=== PATIENT | female | born 1985 | race African-American/Black ===

== ENCOUNTER 2024-08-30 09:28 | Emergency (ER) | payer OTHER, SELFPAY ==
[2024-08-30 09:36] VITALS: BP 110/77; PULSE 78; RESP 18; O2SAT 99; BMI 27.4
--- NOTE | 2024-08-30 10:18 | ED_ITS ---
HPI - Neck Pain/Injury General Chief Complaint: Neck Pain/Injury Stated Complaint: Pain in neck Time Seen by Provider: 08/30/24 10:16 Source: patient, RN notes reviewed and patient case manager Limitations: language barrier History of Present Illness ED Provider: Kristy Quiroga PA-C HPI Narrative: This is a 39-year-old [place] Creole speaking female, with no reported known medical problems who presents emergency department with concerns of neck pain for the last 2 weeks. Patient denies any recent trauma, injury, heavy lifting or falls. States that the pain worsens with movement of her neck. Denies taking any pain modality treatments for her symptoms. Denies any fevers or chills. No chest pain or shortness for breath. No recent change to her sleeping arrangements or pillows. No chance of . No other complaints or concerns at this time. MD complaint: neck pain Associated symptoms: none Treatments prior to arrival: none Related Data Previous Rx's ?Medication ?Instructions ?Recorded acetaminophen 500 mg tablet 500 - 1,000 mg (1 - 2 x 50 0 mg) PO 08/30/24 (Tylenol Extra Strength) Q6H PRN pain #30 tabs ibuprofen 600 mg tablet 600 mg PO Q6H PRN pain #30 t abs 08/30/24 Allergies Allergy/AdvReac Type Severity Reaction Status Date / Time No Known Allergies Allergy Verified 08/30/24 09:38 Review of Systems Review of Systems: Yes all other systems are reviewed and are negative Constitutional: Constitutional: Reports as per [facility] Social History Social History Smoked in Last 30 Days: No Use of substances other than those prescribed or required for medical reasons: No Advance Directives: No Advance Directives Information Provided: Yes Physical Exam Vital Signs: Vital Signs: Last Vital Signs Pulse 78 08/30/24 09:36 Resp 18 08/30/24 09:36 BP 110/77 08/30/24 09:36 Pulse Ox 99 08/30/24 09:36 O2 Del Method Room Air 08/30/24 09:36 BMI result Body Mass Index 27.4 Const: General: cooperative, comfortable and no acute distress Orientation/consciousness: patient oriented x3 Limitations: no limitations HEENT: Head: Yes normal to inspection, Yes normocephalic and Yes atraumatic Ears: hearing grossly normal bilaterally General nose exam: Normal external nose present Face and sinus: Yes normal facial exam Mouth: Normal oral and palatal mucosa present, oropharynx normal and moist mucous membranes Throat: Yes posterior oropharynx normal Eyes: General: appearance normal, both eyes and all related structures Eyelids: Yes eyelids normal Conjunctivae: conjunctivae normal Sclerae: sclerae normal Pupils: Equal, round and reactive pupils present EOM: EOMs intact bilaterally Neck: Other: No nuchal rigidity, full ROM of the neck. She does have pain with lateral rotation looking over to her right side. Able to touch chin to chest. She does have tenderness palpation along the right cervical paraspinous muscles extending into her right upper trapezius muscle. Neck: Yes normal visual inspection, Yes full ROM and Yes no lymphadenopathy Lymphatic: no lymphadenopathy noted Chest: Chest palpation & inspection: normal inspection of the chest Resp: Effort & Inspection: normal respiratory effort and able to speak in complete sentences Auscultation: clear to auscultation bilaterally, no crackles, no rales, no rhonchi and no wheezes Cardio: Rate: regular rate Rhythm: regular rhythm Heart sounds: S1 normal heart sound present and S2 normal heart sound present GI: Inspection: Yes normal to inspection Skin: General skin exam: no rashes or lesions noted Trauma: no lacerations or abrasions Wounds: no wounds Neuro: General: patient oriented x3 and moves all extremities Cranial nerves: Yes Equal, round and reactive pupils present Extrem: General: Yes normal to inspection Right upper extremity: normal to inspection Left upper extremity: normal to inspection Right lower extremity: normal to inspection Left lower extremity: normal to inspection Medical Decision Making Medical Decision Making MDM Narrative: This is a 39-year-old female who presents emergency department for evaluation of neck pain for the last 2 weeks. No trauma or injury. On arrival, vital signs within normal limits. She is speaking full sentences under no acute distress. She has full ROM of the neck. She has no midline cervical spine tenderness. Differential diagnoses include spasmodic torticollis, cervical strain, sprain, contusion. Given no injury, and she has tenderness palpation along the cervical paraspinous muscles extending into the right trapezius muscle, will treat this as musculoskeletal in nature. Given strict return precautions. We will send over ibuprofen and Tylenol to her pharmacy. Patient stable for discharge. Differential Diagnosis Differential Diagnoses: The differential diagnosis associated with the presentation includes See above Discharge Plan Discharge Clinical Impression: Cervical strain Patient Disposition: Home, Self-Care Instructions: Muscle Strain (ED) Additional Instructions: You were seen in the emergency department due to neck pain. You are tender along your muscles along your neck which is very common. Please rest, use heat, and alternate between ibuprofen and Tylenol as needed. Gentle stretching and massage can also help. If any new or worsening symptoms occur including but not limited to worsening pain, high fevers, inability to move your neck, please return for re-evaluation. Prescriptions: New ibuprofen 600 mg tablet 600 mg PO Q6H PRN (Reason: pain) Qty: 30 0RF acetaminophen [Tylenol Extra Strength] 500 mg tablet 500 - 1,000 mg PO Q6H PRN (Reason: pain) Qty: 30 0RF Print Language: Cuban Crebarrera
[2024-08-30 10:42] VITALS: BP 104/68; PULSE 80; RESP 14; TEMP -17.7; TEMP 0; O2SAT 99
--- OUTSIDE RECORDS SUMMARY | 2024-08-30 11:04 | XMS_ITS | Clinical Summary ---
Author Organization [facility] Address [address] [place] [address] Phone Care Team Providers Care Courseware Developer Name Role Phone Unknown, Unknown Primary Care Provider Stan catsillo Allergies No known active allergies Social History Tobacco Use Types Packs/Day Years Used Date Smoking Tobacco: Never Assessed Child or Family Care Answer Date Record ed Do you have problems with on e of the following making it difficult for you to work, study, or receive health care? I choose not to answer 06/02/2023 Education Answer Date Recorded Are you interested in help w ith more adult education (for example, completing high school, GED, job training, learning the [place] language, technical skills, or developing parenting skills)? I choose not to answer 06/02/2023 Are you concerned about learning? Not on file 06/02/2023 No 06/02/2023 Yes 06/02/2023 Food Answer Date Recorded Within the past 6 months we worried whether our food would run out before we got money to buy more. I choose not to answer 06/02/2023 Within the past 6 months the food we bought just didn't last and we didn't have enough money to get more. I choose not to answer 06/02/2023 Residential Stability Answer Date Recor ded What is your housing situation today? I choose n ot to answer 06/02/2023 How many times have you move d in the past 12 months? I choose not to answer 06/02/2023 Paying for Meds Answer Date Recorded Do you have trouble paying for medicines? I gina se not to answer 06/02/2023 Paying Utility Bills Answer Date Record ed Do you have trouble paying y our heating or electricity bill? I choose not to answer 06/02/2023 Transportation Answer Date Recorded Has the lack of transportati on kept you from medical appointments or from getting medications? I choose not to answer 06/02/2023 Unemployment Answer Date Recorded Are you currently unemployed or working on a part-time or temporary basis, and looking for work? I choose not to answer 06/02/2023 Digital Access Answer Date Recorded No 06/02/2023 No 06/02/2023 Do you have reliable internet access at home? I choose not to answer 06/02/2023 Do you have a device (e.g., phone, tablet, computer) with a working camera? I choose not to answer 06/02/2023 Intimate Partner Violence Answer Date R ecorded Are you denied basic needs s uch as food, clothing, or medical care? Deferred 08/15/2023 In the past 12 months have y ou been in a relationship with a person who hurts, threatens, or tries to control you? Deferred 08/15/2023 Are you denied basic needs s uch as food, clothing, or medical care? Deferred 08/15/2023 In the past 12 months have y ou been in a relationship with a person who hurts, threatens, or tries to control you? Deferred 08/15/2023 Comments Unknown Sex and Gender Information Value Date Recorded Sex Assigned at Female 08/15/2023 11:33 AM EDT Legal Sex Female 11:24 AM EDT Gender Identity Female 08/15/2023 11:33 AM EDT Sexual Orientation Straight 08/15/2023 11 :33 AM EDT Last Filed Vital Signs Vital Sign Reading Time Taken Comments Blood Pressure 106/72 08/15/2023 9:57 AM EDT Pulse 78 08/15/2023 9:57 AM EDT Temperature 37.1 C (98.7 F) 08/15/2023 9:57 AM EDT Respiratory Rate 18 08/15/2023 9:57 AM EDT Oxygen Saturation 97% 08/15/2023 9:57 AM EDT Inhaled Oxygen Concentration - - Weight - - Height - - Body Mass Index - - Plan of Treatment Health Maintenance Due Date Last Done Comments Adult Td,Tdap Booster 1985 DEPRESSION SCREENING 1997 SMOKING Hx and SMOKELESS TOB ACCO SCREENING 1998 HEPATITIS C SCREENING 06/07/2003 HIV ONE-TIME SCREENING (18-6 5 YEARS) 06/07/2003 PAP SMEAR 2006 COVID-19 VACCINE (2023-2 5 season) 2023 HEPATITIS A VACCINES Aged Out No long er eligible based on patient's age to complete this topic HIB VACCINES Aged Out No longer eligi ble based on patient's age to complete this topic MENINGOCOCCAL VACCINES (ACWY) Aged Out No longer eligible based on patient's age to complete this topic MENINGOCOCCAL VACCINES (B) Aged Out N o longer eligible based on patient's age to complete this topic PNEUMOCOCCAL VACCINES (0-49 years) Aged Out No longer eligible based on patient's age to complete this topic Medical Devices Not on file Insurance PARTNERSHIP [employer] ACO Room [address] [place] [address] PARTNERSHIP ACO [facility] [employer] [facility] Care Teams Courseware Developer Relationship Specialty Start Date End Date Unknown, Unknown, PCP - General 06/02/23 Additional Source Comments The information contained in this document represents components of the legal health record. It is not the complete legal health record.[facility]
== END 2024-08-30 10:47 | disposition home or self-care (01) ==
PROVIDERS: Emergency Provider Emergency Medicine
DX: S16.1XXA Strain of muscle, fascia and tendon at neck level, initial encounter (principal); X58.XXXA Exposure to other specified factors, initial encounter; M54.2 Cervicalgia; Y93.9 Activity, unspecified; Y92.9 Unspecified place or not applicable; Y99.9 Unspecified external cause status
CPT/HCPCS: 99283; 99284